=== PATIENT | male | born 1965 | race Caucasian/White ===

== ENCOUNTER → 2016-10-09 | Outpatient (CLI) | payer BC ==
[~2016-10-09] MED LIST: CIPR-226 PO; FEXO60TA PO; FLT05NA16; HYDR-3454 PO; METR500T PO; NF-ESOM40C; OMEP-10 PO; OXYC-197 PO
--- NOTE | 2016-10-09 12:14 | Diagnostic Imaging Report ---
PROCEDURE: MRI right joint upper extremity without contrast. TECHNIQUE: Multiplanar, multisequence non contrast-enhanced MRI of the right upper extremity was accomplished. INDICATION: Right shoulder pain. FINDINGS: The acromioclavicular joint demonstrate prominent subchondral edema and joint fluid with subchondral cyst formation and thickening of its capsule. There is impression from the thickened inferior portion of the capsule upon the myotendinous junction of the supraspinatus. There is minimal acromioclavicular joint bursitis with edema seen. No significant fluid distention however of the bursa. The supraspinatus and infraspinatus distal tendons demonstrate increased signal without full-thickness tear or retraction. This is compatible with tendinosis or intrasubstance partial tear. The long head biceps tendon appears to be within its groove. The subscapular tendon appears unremarkable. The glenoid labrum would be better evaluated with an MR arthrogram but demonstrate no obvious tear on this exam. There is suggestion of tiny ganglion cysts along the anterior aspect of the humerus abutting the tendon sheath of the long head of biceps in the lower aspect of the bicipital groove level and measuring up to 1.3 x 0.3 x 0.7 cm in size. The muscle bulk and signal around the shoulder is normal. IMPRESSION: 1. Significant arthritic changes in the acromioclavicular joint, presumably degenerative. Correlate clinically. 2. Increased signal within the distal supraspinatus and infraspinatus tendons suggestive of tendinosis or low-grade intrasubstance partial tear. Dictated by: Dictated on workstation # [id number]
== END ==
LOC: RAD 09:27
PROVIDERS: ATTEND Nurse Practitioner
DX: M19.011 Primary osteoarthritis, right shoulder (principal)
CPT/HCPCS: 73221

== ENCOUNTER → 2018-07-27 | Outpatient (CLI) | payer BC ==
[~2018-07-27] MED LIST changes: -OXYC-197 PO; +OXYC1TAB87 PO
--- NOTE | 2018-07-27 15:18 | Diagnostic Imaging Report ---
EXAMINATION: Thoracic spine at 1:33 p.m. INDICATION: Back pain. TECHNIQUE: AP, lateral and swimmer's views were obtained. COMPARISON: There are no prior studies available for comparison. FINDINGS: The lateral view shows the vertebral body heights and alignment to be generally within normal limits. The intervertebral disc spaces are fairly well-maintained. There is no fracture or acute bony abnormality evident. There is no sign of a paraspinal mass. IMPRESSION: 1. There is no evidence for an acute bony abnormality. 2. If clinical concern regarding an underlying abnormality persists, then MRI would be recommended for further study. Dictated by: Dictated on workstation # [id number]
== END ==
LOC: RAD 13:18
PROVIDERS: ATTEND Chiropractor
DX: M54.6 Pain in thoracic spine (principal)
CPT/HCPCS: 72072